=== PATIENT | male | born 1970 | race Caucasian/White ===

== ENCOUNTER 2017-10-21 21:59 | Inpatient (IN) | payer BC ==
[~2017-10-21] VITALS: Ht 175.3 cm; Wt 112.0 kg
[2017-10-21 22:02] VITALS: Ht 175.3 cm; Wt 112.0 kg
[2017-10-21 22:43] LABS: BASOPHIL % 0.5 % (0-2); PLATELET COUNT 290 x10^3mcL (130-400)
[2017-10-21 22:46] LABS: RED CELL DISTRIBUTION WIDTH 15.2 % (11.5-14.5)
[2017-10-21 22:55] LABS: CARBON DIOXIDE 24.3 mmol/L (21-32); CREATININE SERUM 2.2 mg/dL (0.7-1.3); POTASSIUM SERUM 3.8 mmol/L (3.5-5.1)
[2017-10-21 22:57] LABS: BILIRUBIN TOTAL 0.5 mg/dL (0.20-1.00); TOTAL PROTEIN, SERUM 6.5 g/dL (6.4-8.2)
[2017-10-21 22:59] LABS: ALBUMIN 3.3 g/dL (3.4-5.0)
[2017-10-22] VITALS (8 sets, daily range): BP systolic 109–188; BP diastolic 61–114
[2017-10-22 02:31] LABS: UA SPECIFIC GRAVITY 1.025 (1.005-1.035); microscopic required? YES; urine erythrocyte NEGATIVE (NEGATIVE)
[2017-10-22 02:35] LABS: MAGNESIUM 2.1 mg/dL (1.8-2.4); PHOSPHOROUS 3.5 mg/dL (2.5-4.9)
[2017-10-22 02:37] LABS: AMPHETAMINE QUAL UR NONE DETECTED (NEG <=1000)
[2017-10-22 02:41] LABS: FREE T4 1.07 ng/dL (0.76-1.46); FREE THYROXINE INDEX 2.3 ug/dL (1.4-4.5); T4(THYROXINE) 7.1 ug/dL (4.7-13.3)
[2017-10-22 02:51] LABS: T3 TOTAL 1.15 ng/mL
[2017-10-22 05:29] LABS: BASOPHIL % 0.2 % (0-2); PLATELET COUNT 329 x10^3mcL (130-400)
[2017-10-22 05:30] LABS: RED CELL DISTRIBUTION WIDTH 15.4 % (11.5-14.5)
[2017-10-22 05:36] LABS: CARBON DIOXIDE 27.1 mmol/L (21-32); CREATININE SERUM 2.2 mg/dL (0.7-1.3); MAGNESIUM 1.9 mg/dL (1.8-2.4); PHOSPHOROUS 3.3 mg/dL (2.5-4.9); POTASSIUM SERUM 3.5 mmol/L (3.5-5.1)
[2017-10-23 03:20] LABS: BASOPHIL % 0.3 % (0-2); PLATELET COUNT 275 x10^3mcL (130-400)
[2017-10-23 03:22] LABS: RED CELL DISTRIBUTION WIDTH 15.5 % (11.5-14.5)
[2017-10-23 03:26] LABS: CALCIUM 10.4 mg/dL (8.5-10.1); CARBON DIOXIDE 24.9 mmol/L (21-32); CREATININE SERUM 1.8 mg/dL (0.7-1.3); MAGNESIUM 1.8 mg/dL (1.8-2.4); PHOSPHOROUS 2.8 mg/dL (2.5-4.9); POTASSIUM SERUM 3.7 mmol/L (3.5-5.1)
[2017-10-23 03:44] VITALS: BP 154/96
[2017-10-23 07:40] VITALS: BP 155/89
[2017-10-23 12:19] VITALS: BP 156/104
[2017-10-23 18:01] VITALS: BP 143/947
[2017-10-23 19:30] VITALS: BP 148/98
[2017-10-24 06:08] VITALS: BP 144/92
[2017-10-24 07:05] LABS: CALCIUM 10.3 mg/dL (8.5-10.1); CARBON DIOXIDE 24.4 mmol/L (21-32); CREATININE SERUM 1.9 mg/dL (0.7-1.3); MAGNESIUM 1.9 mg/dL (1.8-2.4); PHOSPHOROUS 2.8 mg/dL (2.5-4.9); POTASSIUM SERUM 4.2 mmol/L (3.5-5.1)
[2017-10-24 07:16] LABS: BASOPHIL % 0.1 % (0-2); PLATELET COUNT 267 x10^3mcL (130-400)
[2017-10-24 07:17] LABS: RED CELL DISTRIBUTION WIDTH 15.6 % (11.5-14.5)
[2017-10-24 09:01] VITALS: BP 140/98
[2017-10-24 13:20] VITALS: BP 160/111
[2017-10-24] MEDS ORDERED: ZIT250 PO (13:37)
[2017-10-24] MEDS ORDERED: LIPI10 PO (13:38)
[2017-10-24] MEDS ORDERED: COREG12.5 MG PO (13:38)
[2017-10-24] MEDS ORDERED: ZES20 PO (13:40)
[2017-10-24] MEDS ORDERED: ECO81 PO (13:41)
[2017-10-24 15:26] VITALS: BP 160/111
== END 2017-10-24 16:35 | disposition home or self-care (01) | DRG 280 ==
LOC: ED 21:59 → IC 10-22 00:47 → DU 10-23 12:02
PROVIDERS: Emergency Medicine; Family Medicine
DX: I21.4 Non-ST elevation (NSTEMI) myocardial infarction (principal); J96.01 Acute respiratory failure with hypoxia; N17.0 Acute kidney failure with tubular necrosis; I50.43 Acute on chronic combined systolic (congestive) and diastolic (congestive) heart failure; I16.1 Hypertensive emergency; E44.0 Moderate protein-calorie malnutrition; R31.9 Hematuria, unspecified; E83.52 Hypercalcemia; I11.0 Hypertensive heart disease with heart failure; F43.9 Reaction to severe stress, unspecified; D72.829 Elevated white blood cell count, unspecified; E66.9 Obesity, unspecified; Z91.14 Patient's other noncompliance with medication regimen; Z68.36 Body mass index [BMI] 36.0-36.9, adult
CPT/HCPCS: 83880; 84439; J0360; J0696; J0780; J1644; J1940; J2060; J2270; J3490; J7030; J7620; Q0092

== ENCOUNTER 2020-07-04 20:22 | Inpatient (IN) | payer SELFPAY ==
[~2020-07-04] VITALS: Ht 172.7 cm; Wt 94.6 kg
[~2020-07-04 20:22] MED LIST: COREG12.5 MG PO; ECO81 PO; LIPI10 PO; ZES20 PO; ZIT250 PO
[2020-07-04 20:36] VITALS: Ht 172.7 cm; Wt 94.6 kg
[2020-07-04 21:42] LABS: BASOPHIL % 0.1 % (0-2); PLATELET COUNT 258 x10^3mcL (130-400); RED CELL DISTRIBUTION WIDTH 15.4 % (11.5-14.5)
[2020-07-04 21:44] LABS: CARBON DIOXIDE 25.4 mmol/L (21-32); CREATININE SERUM 2.1 mg/dL (0.7-1.3); POTASSIUM SERUM 3.8 mmol/L (3.5-5.1)
[2020-07-04 21:49] LABS: ALBUMIN 3.4 g/dL (3.4-5.0); BILIRUBIN TOTAL 0.65 mg/dL (0.20-1.00); TOTAL PROTEIN, SERUM 6.7 g/dL (6.4-8.2)
[2020-07-05] MEDS ORDERED: TRA100 PO (09:43)
[2020-07-05] MEDS ORDERED: HYDRALAZINE HCL50 MG PO (09:43)
[2020-07-05 12:20] VITALS: BP 137/80
[2020-07-05 12:31] VITALS: BP 137/80
[2020-07-05 12:34] LABS: PHOSPHOROUS 2.9 mg/dL (2.5-4.9)
[2020-07-05 12:36] LABS: CHOLESTEROL/HDL RATIO 3.6
[2020-07-05 16:27] VITALS: BP 173/89
[2020-07-05 19:05] VITALS: BP 117/75
[2020-07-05 21:09] VITALS: BP 138/89
[2020-07-06 06:20] VITALS: BP 133/77
[2020-07-06 07:14] LABS: BASOPHIL % 0.2 % (0-2); PLATELET COUNT 240 x10^3mcL (130-400)
[2020-07-06 07:31] LABS: RED CELL DISTRIBUTION WIDTH 15.4 % (11.5-14.5)
[2020-07-06 07:54] LABS: CALCIUM 10.6 mg/dL (8.5-10.1); CREATININE SERUM 1.8 mg/dL (0.7-1.3)
[2020-07-06 08:24] VITALS: BP 166/91
[2020-07-06 12:23] VITALS: BP 163/85
[2020-07-06 16:06] VITALS: BP 146/83
[2020-07-06 21:18] VITALS: BP 145/80
[2020-07-07 05:30] VITALS: BP 142/86
[2020-07-07 07:21] LABS: BASOPHIL % 0.4 % (0-2); PLATELET COUNT 230 x10^3mcL (130-400)
[2020-07-07 08:19] VITALS: BP 147/90
[2020-07-07 08:39] LABS: CALCIUM 11.2 mg/dL (8.5-10.1); MAGNESIUM 2.2 mg/dL (1.8-2.4); POTASSIUM SERUM 4.1 mmol/L (3.5-5.1)
[2020-07-07 08:48] LABS: RED CELL DISTRIBUTION WIDTH 15.4 % (11.5-14.5)
[2020-07-07 12:15] VITALS: BP 164/98
[2020-07-07 16:47] VITALS: BP 176/90
[2020-07-07 20:05] VITALS: BP 137/77
[2020-07-08 05:25] VITALS: BP 156/88
[2020-07-08 07:07] LABS: BASOPHIL % 0.4 % (0-2); PLATELET COUNT 227 x10^3mcL (130-400)
[2020-07-08 07:17] LABS: CARBON DIOXIDE 25.4 mmol/L (21-32); POTASSIUM SERUM 4.2 mmol/L (3.5-5.1)
[2020-07-08 08:17] LABS: RED CELL DISTRIBUTION WIDTH 15.5 % (11.5-14.5)
[2020-07-08 08:35] VITALS: BP 125/80
[2020-07-08 13:04] VITALS: BP 139/76
[2020-07-08 17:48] VITALS: BP 156/78
[2020-07-08 20:46] VITALS: BP 187/95
[2020-07-08 23:10] VITALS: BP 158/87
[2020-07-09] VITALS (7 sets, daily range): BP systolic 135–160; BP diastolic 65–95
[2020-07-09 07:05] LABS: BASOPHIL % 0.4 % (0-2); PLATELET COUNT 243 x10^3mcL (130-400)
[2020-07-09 07:07] LABS: RED CELL DISTRIBUTION WIDTH 15.2 % (11.5-14.5)
[2020-07-09 07:21] LABS: CALCIUM 11.1 mg/dL (8.5-10.1); CARBON DIOXIDE 25.5 mmol/L (21-32); POTASSIUM SERUM 4.1 mmol/L (3.5-5.1)
[2020-07-10 05:24] VITALS: BP 141/96
[2020-07-10 07:32] LABS: BASOPHIL % 0.3 % (0-2); PLATELET COUNT 245 x10^3mcL (130-400)
[2020-07-10 07:48] LABS: CALCIUM 10.7 mg/dL (8.5-10.1); CARBON DIOXIDE 25.2 mmol/L (21-32); CREATININE SERUM 1.8 mg/dL (0.7-1.3)
[2020-07-10 07:51] VITALS: BP 174/96
[2020-07-10 10:25] LABS: RED CELL DISTRIBUTION WIDTH 15.1 % (11.5-14.5)
[2020-07-10 11:33] VITALS: BP 150/84
[2020-07-10 12:13] VITALS: BP 178/95
[2020-07-10] MEDS ORDERED: APR50 PO (13:11)
[2020-07-10] MEDS ORDERED: ECO81 PO (13:12)
[2020-07-10] MEDS ORDERED: TRA100 PO (13:12)
[2020-07-10] MEDS ORDERED: LIPI10 PO (13:12)
[2020-07-10 13:44] VITALS: BP 170/75
[2020-07-10 15:15] VITALS: BP 148/86
== END 2020-07-10 16:00 | disposition home or self-care (01) | DRG 304 ==
LOC: ED 20:22 → DU 07-05 10:15
PROVIDERS: Emergency Medicine; ADMIT Family Medicine; ATTEND Family Medicine
DX: I16.0 Hypertensive urgency (principal); I71.02 Dissection of abdominal aorta; N17.9 Acute kidney failure, unspecified; E78.5 Hyperlipidemia, unspecified; Z20.828 Contact with and (suspected) exposure to other viral communicable diseases; I12.9 Hypertensive chronic kidney disease with stage 1 through stage 4 chronic kidney disease, or unspecified chronic kidney disease; N18.9 Chronic kidney disease, unspecified
CPT/HCPCS: C9113; G0378; J0360; J3490; J7030; Q9967